=== PATIENT | male | born 1955 | race African-American/Black ===

== ENCOUNTER 2021-10-23 18:39 | Inpatient (IN) | payer MEDICAID, OTHER ==
[~2021-10-23] VITALS: Ht 188 cm; Wt 128.4 kg
[2021-10-23] MEDS ORDERED: cloNIDine HCL 0.1 MG TAB PO ONE (19:00)
[2021-10-23] MEDS ORDERED: HEPARIN DRIP/D5W 100UNITS/ML 250 ML IV SCH (20:00)
[2021-10-23] MEDS ORDERED: HEPARIN SODIUM (PORCINE) 5000 UNITS/ML 1ML VIAL IV ONE (20:00)
[2021-10-23] MEDS ORDERED: LIDOCAINE 5% TOPICAL PATCH TOP ONE (20:00)
[2021-10-23] MEDS ORDERED: ACETAMINOPHEN 325 MG TAB PO ONE (20:00)
[2021-10-23] MEDS ORDERED: NICOTINE 14 MG/24HR TOPICAL PATCH TD ONE (20:00)
[2021-10-23] MEDS ORDERED: IOHEXOL 350 MG/ML 100ML IJ ONE ×2 (20:03→20:04)
[2021-10-23 20:43] LABS: Albumin 2.6 g/dL (3.4-5.0); Calcium 7.2 mg/dL (8.5-10.1); Potassium 4.1 mmol/L (3.5-5.1)
[2021-10-23] MEDS ORDERED: hydrALAZINE HCL 20 MG/ML VL IV ONE (20:45)
[2021-10-23 20:46] LABS: INR 1.02 (0.9-1.15); Partial Thromboplastin Time 30.1 sec (23.6-33.0)
[2021-10-23 20:52] LABS: BUN/Creatinine Ratio 7.2; Bilirubin, Total 0.4 mg/dL (0.2-1.0); Total Protein 6.1 g/dL (6.4-8.2)
[2021-10-23 20:55] LABS: Basophils # (auto) 0 10 ^3/uL (0-0.2); Basophils % (auto) 0.4 % (0.0-2.0); Eosinophils # (auto) 0.1 10 ^3/uL (0-0.8); Eosinophils % (auto) 1.7 % (0.0-7.0); Hematocrit 29.5 % (41.0-53.0); Hemoglobin 9.7 g/dL (13.5-17.5); Lymphocytes # (auto) 1.4 10 ^3/uL (0.4-5.4); Lymphocytes % (auto) 20.1 % (10.0-50.0); Mean Corpuscular Hemoglobin 30.1 pg (28.0-32.0); Mean Corpuscular Hgb Conc. 32.8 g/dL (32.0-36.0); Mean Corpuscular Volume 91.6 fL (80.0-100.0); Monocytes # (auto) 0.6 10 ^3/uL (0-1.3); Monocytes % (auto) 9.1 % (0.0-12.0); Neutrophils # (auto) 4.6 10 ^3/uL (1.6-8.6); Neutrophils % (auto) 68.7 % (37.0-80.0); Nucleated Red Blood Cells % 0.1 %; Red Blood Cells 3.22 10^6/uL (4.5-5.90); Red Cell Distribution Width 13.9 % (11.8-14.3); White Blood Cell 6.7 10^3/uL (4.4-10.8)
[2021-10-23] MEDS ORDERED: HYDROcodone-ACET 5/325MG TAB PO ONE (21:30)
[2021-10-23] MEDS ORDERED: GABAPENTIN 300 MG CAP PO ONE (21:30)
[2021-10-24] MEDS ORDERED: VANCOMYCIN 1GM/250ML 250 ML IV ONE ×2 (01:15)
[2021-10-24] MEDS ORDERED: CLINDAMYCIN 600MG IV 50 ML IV ONE (01:15)
[2021-10-24] MEDS ORDERED: MORPHINE SULFATE INJECTION 2 MG/ML SYRG IV PRN (02:00)
[2021-10-24] MEDS ORDERED: NITROGLYCERIN 0.4 MG SL TAB SL PRN (02:00)
[2021-10-24] MEDS ORDERED: DEXTROSE (50%) 50ML SYRG IV PRN (02:00)
[2021-10-24] MEDS ORDERED: ONDANSETRON HCL 4 MG/2 ML VIAL IV PRN (02:00)
[2021-10-24] MEDS: hydrALAZINE HCL 20 MG/ML VL IV PRN ×3 (02:57→22:32)
[2021-10-24] MEDS: MORPHINE SULFATE INJECTION 2 MG/ML SYRG IV PRN ×4 (04:11→22:23)
[2021-10-24] MEDS ORDERED: LABETALOL HCL 5 MG/ML 4ML SYRINGE IV ONE (05:15)
[2021-10-24] MEDS: HEPARIN SODIUM (PORCINE) 5000 UNITS/ML 1ML VIAL SC SCH ×3 (06:01→21:17)
[2021-10-24] MEDS: InsuLIN REG 1unit/0.01ml Soln (100units/ml) SC SCH ×4 (06:24→21:27)
[2021-10-24] MEDS: ACCU-CHEK COMFORT CURVE STRIP VI SCH ×4 (06:45→21:30)
[2021-10-24 06:54] LABS: Basophils # (auto) 0 10 ^3/uL (0-0.2); Basophils % (auto) 0.4 % (0.0-2.0); Eosinophils # (auto) 0.1 10 ^3/uL (0-0.8); Eosinophils % (auto) 2.1 % (0.0-7.0); Hematocrit 28.8 % (41.0-53.0); Hemoglobin 9.8 g/dL (13.5-17.5); Lymphocytes # (auto) 1.6 10 ^3/uL (0.4-5.4); Lymphocytes % (auto) 27.3 % (10.0-50.0); Mean Corpuscular Hemoglobin 31.1 pg (28.0-32.0); Mean Corpuscular Hgb Conc. 34.2 g/dL (32.0-36.0); Mean Corpuscular Volume 90.9 fL (80.0-100.0); Monocytes # (auto) 0.6 10 ^3/uL (0-1.3); Monocytes % (auto) 9.5 % (0.0-12.0); Neutrophils # (auto) 3.6 10 ^3/uL (1.6-8.6); Neutrophils % (auto) 60.7 % (37.0-80.0); Red Blood Cells 3.16 10^6/uL (4.5-5.90); Red Cell Distribution Width 13.9 % (11.8-14.3)
[2021-10-24 07:19] LABS: Calcium 7.5 mg/dL (8.5-10.1); Potassium 3.8 mmol/L (3.5-5.1)
[2021-10-24 07:25] LABS: BUN/Creatinine Ratio 7.8
[2021-10-24] MEDS: LOSARTAN POTASSIUM 50 MG TAB PO SCH (11:45)
[2021-10-24] MEDS: TAMSULOSIN HYDROCHLORIDE 0.4 MG CAP PO SCH (11:45)
[2021-10-24] MEDS: GABAPENTIN 300 MG CAP PO SCH ×2 (11:45→21:12)
[2021-10-24] MEDS: cloNIDine HCL 0.1 MG TAB PO SCH ×2 (11:46→21:15)
[2021-10-24] MEDS: glipiZIDE 5 MG TAB PO SCH (11:59)
[2021-10-24] MEDS: DOXYCYCLINE 100MG/250ML 250 ML IV SCH (12:05)
[2021-10-24 12:49] VITALS: BP 182/90
[2021-10-24 13:00] VITALS: BP 182/90
[2021-10-24] MEDS ORDERED: FUROSEMIDE 100 MG/10ML VIAL IV SCH (16:30)
[2021-10-24 17:00] VITALS: BP 150/92
[2021-10-24] MEDS ORDERED: FUROSEMIDE 40 MG TAB PO SCH (18:00)
[2021-10-24 18:03] LABS: Protein, Urine 881.4 mg/dL (0.0-11.9)
[2021-10-24 20:00] VITALS: BP 144/91
[2021-10-24] MEDS: TERAZOSIN HCL 1 MG CAP PO SCH (21:14)
[2021-10-24 21:43] VITALS: BP 183/92
[2021-10-25] MEDS ORDERED: LABETALOL HCL 5 MG/ML 4ML SYRINGE IV ONE (00:45)
[2021-10-25] MEDS ORDERED: ACETAMINOPHEN 325 MG TAB PO PRN (00:45)
[2021-10-25] MEDS: DOXYCYCLINE 100MG/250ML 250 ML IV SCH ×2 (00:51→12:10)
[2021-10-25] MEDS: hydrALAZINE HCL 20 MG/ML VL IV PRN ×2 (04:33→23:42)
[2021-10-25 04:52] VITALS: BP 180/92
[2021-10-25 05:29] LABS: Basophils # (auto) 0 10 ^3/uL (0-0.2); Basophils % (auto) 0.3 % (0.0-2.0); Eosinophils # (auto) 0.1 10 ^3/uL (0-0.8); Eosinophils % (auto) 2.1 % (0.0-7.0); Hematocrit 28.4 % (41.0-53.0); Hemoglobin 9.6 g/dL (13.5-17.5); Lymphocytes # (auto) 1.1 10 ^3/uL (0.4-5.4); Lymphocytes % (auto) 15.7 % (10.0-50.0); Mean Corpuscular Hemoglobin 30.8 pg (28.0-32.0); Mean Corpuscular Hgb Conc. 33.8 g/dL (32.0-36.0); Mean Corpuscular Volume 91.1 fL (80.0-100.0); Monocytes # (auto) 0.6 10 ^3/uL (0-1.3); Monocytes % (auto) 8.8 % (0.0-12.0); Neutrophils % (auto) 73.1 % (37.0-80.0); Nucleated Red Blood Cells % 0.1 %; Red Blood Cells 3.12 10^6/uL (4.5-5.90); Red Cell Distribution Width 13.7 % (11.8-14.3); White Blood Cell 6.8 10^3/uL (4.4-10.8)
[2021-10-25 05:41] LABS: BUN/Creatinine Ratio 7.7; Calcium 7.7 mg/dL (8.5-10.1); Potassium 3.8 mmol/L (3.5-5.1)
[2021-10-25] MEDS: FUROSEMIDE 100 MG/10ML VIAL IV SCH ×2 (06:49→17:45)
[2021-10-25] MEDS: HEPARIN SODIUM (PORCINE) 5000 UNITS/ML 1ML VIAL SC SCH ×3 (06:54→22:00)
[2021-10-25] MEDS: ACCU-CHEK COMFORT CURVE STRIP VI SCH ×4 (06:56→22:18)
[2021-10-25] MEDS: InsuLIN REG 1unit/0.01ml Soln (100units/ml) SC SCH ×4 (06:56→22:00)
[2021-10-25 09:00] VITALS: BP 162/95
[2021-10-25] MEDS: cloNIDine HCL 0.1 MG TAB PO SCH ×2 (09:40→21:52)
[2021-10-25] MEDS: LOSARTAN POTASSIUM 50 MG TAB PO SCH (09:41)
[2021-10-25] MEDS: TAMSULOSIN HYDROCHLORIDE 0.4 MG CAP PO SCH (09:41)
[2021-10-25] MEDS: GABAPENTIN 300 MG CAP PO SCH ×2 (09:42→22:29)
[2021-10-25] MEDS: glipiZIDE 5 MG TAB PO SCH (09:43)
[2021-10-25 13:00] VITALS: BP 154/84
[2021-10-25] MEDS: MORPHINE SULFATE INJECTION 2 MG/ML SYRG IV PRN ×2 (14:06→20:02)
[2021-10-25] MEDS: CALCIUM ACETATE 667 MG CAP PO SCH ×2 (14:09→17:45)
[2021-10-25 14:18] LABS: INR 1.05 (0.9-1.15); Partial Thromboplastin Time 31.5 sec (23.6-33.0)
[2021-10-25 17:00] VITALS: BP 166/70
[2021-10-25 21:51] VITALS: BP 203/99
[2021-10-25] MEDS: TERAZOSIN HCL 1 MG CAP PO SCH (21:52)
[2021-10-25 22:39] VITALS: BP 208/92
[2021-10-26] VITALS (8 sets, daily range): BP systolic 150–197; BP diastolic 76–112
[2021-10-26] MEDS: MORPHINE SULFATE INJECTION 2 MG/ML SYRG IV PRN ×2 (00:41→05:58)
[2021-10-26] MEDS: HEPARIN SODIUM (PORCINE) 5000 UNITS/ML 1ML VIAL SC SCH ×3 (05:24→22:46)
[2021-10-26] MEDS: FUROSEMIDE 100 MG/10ML VIAL IV SCH ×2 (05:44→18:00)
[2021-10-26] MEDS: ACCU-CHEK COMFORT CURVE STRIP VI SCH ×4 (06:14→22:47)
[2021-10-26] MEDS: InsuLIN REG 1unit/0.01ml Soln (100units/ml) SC SCH ×4 (06:41→22:48)
[2021-10-26] MEDS ORDERED: SODIUM CHL 0.9% 1000 ML BAG XX ONE (07:00)
[2021-10-26] MEDS: CALCIUM ACETATE 667 MG CAP PO SCH ×3 (08:00→18:00)
[2021-10-26 08:59] LABS: Basophils # (auto) 0 10 ^3/uL (0-0.2); Basophils % (auto) 0.5 % (0.0-2.0); Eosinophils # (auto) 0.1 10 ^3/uL (0-0.8); Eosinophils % (auto) 2.2 % (0.0-7.0); Hematocrit 28.8 % (41.0-53.0); Hemoglobin 9.5 g/dL (13.5-17.5); Lymphocytes # (auto) 1.2 10 ^3/uL (0.4-5.4); Lymphocytes % (auto) 21.4 % (10.0-50.0); Mean Corpuscular Hemoglobin 30.7 pg (28.0-32.0); Mean Corpuscular Hgb Conc. 33.1 g/dL (32.0-36.0); Mean Corpuscular Volume 92.8 fL (80.0-100.0); Monocytes # (auto) 0.6 10 ^3/uL (0-1.3); Monocytes % (auto) 10.6 % (0.0-12.0); Neutrophils # (auto) 3.6 10 ^3/uL (1.6-8.6); Neutrophils % (auto) 65.3 % (37.0-80.0); Nucleated Red Blood Cells % 0.1 %; Red Blood Cells 3.11 10^6/uL (4.5-5.90); Red Cell Distribution Width 13.8 % (11.8-14.3); White Blood Cell 5.5 10^3/uL (4.4-10.8)
[2021-10-26 09:21] LABS: BUN/Creatinine Ratio 7.9; Calcium 7.8 mg/dL (8.5-10.1); Potassium 4.5 mmol/L (3.5-5.1)
[2021-10-26] MEDS: cloNIDine HCL 0.1 MG TAB PO SCH ×2 (10:00→22:45)
[2021-10-26] MEDS: B-COMPLEX W/ C & FOLIC ACID(NEPHROVITE TAB) PO SCH (10:00)
[2021-10-26] MEDS: TAMSULOSIN HYDROCHLORIDE 0.4 MG CAP PO SCH (10:00)
[2021-10-26] MEDS: glipiZIDE 5 MG TAB PO SCH (10:00)
[2021-10-26] MEDS: GABAPENTIN 300 MG CAP PO SCH ×2 (10:00→22:46)
[2021-10-26] MEDS: LOSARTAN POTASSIUM 50 MG TAB PO SCH (10:00)
[2021-10-26] MEDS ORDERED: LIDOCAINE 2%HCL (LOCAL ANESTH.) INJ 10ml MDV ONE (10:39)
[2021-10-26] MEDS ORDERED: HEPARIN SODIUM (PORCINE) 5000 UNITS/ML 1ML VIAL ONE (10:43)
[2021-10-26] MEDS ORDERED: fentaNYL CITRATE 100 MCG/2 ML VL ONE (10:43)
[2021-10-26] MEDS ORDERED: MIDAZOLAM HCL 2MG/2ML 2ml VIAL (1mg/ml) ONE (10:44)
[2021-10-26] MEDS ORDERED: IODIXANOL 320MG/ML 100ML BTL IV ONE (10:55)
[2021-10-26 18:25] LABS: Hepatitis C Antibody Positive (Negative)
[2021-10-26] MEDS ORDERED: EPOETIN ALFA-EPBX 10,000 UNIT/1ML VIAL SC ONE (21:00)
[2021-10-26] MEDS: TERAZOSIN HCL 1 MG CAP PO SCH (22:45)
[2021-10-27] MEDS: MORPHINE SULFATE INJECTION 2 MG/ML SYRG IV PRN ×3 (04:32→18:49)
[2021-10-27 04:53] VITALS: BP 150/86
[2021-10-27] MEDS: InsuLIN REG 1unit/0.01ml Soln (100units/ml) SC SCH ×4 (07:00→22:25)
[2021-10-27] MEDS: FUROSEMIDE 100 MG/10ML VIAL IV SCH ×2 (07:01→18:32)
[2021-10-27] MEDS: HEPARIN SODIUM (PORCINE) 5000 UNITS/ML 1ML VIAL SC SCH ×3 (07:02→22:21)
[2021-10-27] MEDS: ACCU-CHEK COMFORT CURVE STRIP VI SCH ×4 (07:02→22:16)
[2021-10-27] MEDS: CALCIUM ACETATE 667 MG CAP PO SCH ×3 (08:56→18:32)
[2021-10-27 09:00] VITALS: BP 154/96
[2021-10-27] MEDS: GABAPENTIN 300 MG CAP PO SCH ×2 (10:31→22:15)
[2021-10-27] MEDS: TAMSULOSIN HYDROCHLORIDE 0.4 MG CAP PO SCH (10:32)
[2021-10-27] MEDS: LOSARTAN POTASSIUM 50 MG TAB PO SCH (10:32)
[2021-10-27] MEDS: B-COMPLEX W/ C & FOLIC ACID(NEPHROVITE TAB) PO SCH (10:32)
[2021-10-27] MEDS: cloNIDine HCL 0.1 MG TAB PO SCH ×2 (10:33→22:15)
[2021-10-27] MEDS: glipiZIDE 5 MG TAB PO SCH (10:47)
[2021-10-27 13:00] VITALS: BP 151/87
[2021-10-27 17:00] VITALS: BP 169/94
[2021-10-27] MEDS: hydrALAZINE HCL 20 MG/ML VL IV PRN (18:33)
[2021-10-27 21:51] VITALS: BP 205/92
[2021-10-27] MEDS: TERAZOSIN HCL 1 MG CAP PO SCH (22:15)
[2021-10-28] MEDS: hydrALAZINE HCL 20 MG/ML VL IV PRN ×3 (00:05→08:39)
[2021-10-28 01:32] VITALS: BP 171/87
[2021-10-28 04:41] VITALS: BP 188/98
[2021-10-28] MEDS: ACCU-CHEK COMFORT CURVE STRIP VI SCH ×4 (05:56→22:06)
[2021-10-28] MEDS: FUROSEMIDE 100 MG/10ML VIAL IV SCH ×2 (05:56→18:18)
[2021-10-28] MEDS: HEPARIN SODIUM (PORCINE) 5000 UNITS/ML 1ML VIAL SC SCH ×3 (05:57→22:13)
[2021-10-28] MEDS: InsuLIN REG 1unit/0.01ml Soln (100units/ml) SC SCH ×4 (06:16→22:13)
[2021-10-28 09:00] VITALS: BP 173/81
[2021-10-28] MEDS: TAMSULOSIN HYDROCHLORIDE 0.4 MG CAP PO SCH (09:34)
[2021-10-28] MEDS: cloNIDine HCL 0.1 MG TAB PO SCH ×2 (09:34→22:05)
[2021-10-28] MEDS: LOSARTAN POTASSIUM 50 MG TAB PO SCH (09:34)
[2021-10-28] MEDS: glipiZIDE 5 MG TAB PO SCH (09:35)
[2021-10-28] MEDS: B-COMPLEX W/ C & FOLIC ACID(NEPHROVITE TAB) PO SCH (09:35)
[2021-10-28] MEDS: GABAPENTIN 300 MG CAP PO SCH ×2 (09:35→22:04)
[2021-10-28] MEDS: CALCIUM ACETATE 667 MG CAP PO SCH ×3 (09:37→18:18)
[2021-10-28] MEDS ORDERED: SODIUM CHL 0.9% 1000 ML BAG XX ONE (10:15)
[2021-10-28 11:26] LABS: BUN/Creatinine Ratio 7.1; Calcium 8.9 mg/dL (8.5-10.1); Potassium 4.2 mmol/L (3.5-5.1)
[2021-10-28 13:00] VITALS: BP 181/89
[2021-10-28] MEDS ORDERED: LACTULOSE 20Gm/30ML SOLN PO PRN (15:30)
[2021-10-28] MEDS ORDERED: DOCUSATE SOD 100 MG CAP PO PRN (15:30)
[2021-10-28 17:00] VITALS: BP 131/78
[2021-10-28] MEDS: MORPHINE SULFATE INJECTION 2 MG/ML SYRG IV PRN (19:44)
[2021-10-28 22:00] VITALS: BP 171/90
[2021-10-28] MEDS ORDERED: SENNA 8.6 MG TAB PO PRN (22:00)
[2021-10-28] MEDS: TERAZOSIN HCL 1 MG CAP PO SCH (22:05)
[2021-10-28] MEDS: METOPROLOL TARTRATE 25 MG TAB PO SCH (22:06)
[2021-10-29] MEDS: hydrALAZINE HCL 20 MG/ML VL IV PRN (00:58)
[2021-10-29 05:00] VITALS: BP 133/86
[2021-10-29] MEDS: ACCU-CHEK COMFORT CURVE STRIP VI SCH ×4 (06:49→21:00)
[2021-10-29] MEDS: FUROSEMIDE 100 MG/10ML VIAL IV SCH ×2 (06:49→17:44)
[2021-10-29] MEDS: HEPARIN SODIUM (PORCINE) 5000 UNITS/ML 1ML VIAL SC SCH ×3 (06:55→21:17)
[2021-10-29] MEDS: InsuLIN REG 1unit/0.01ml Soln (100units/ml) SC SCH ×4 (06:57→21:19)
[2021-10-29] MEDS: CALCIUM ACETATE 667 MG CAP PO SCH ×3 (07:45→17:44)
[2021-10-29 09:00] VITALS: BP 166/87
[2021-10-29] MEDS: TAMSULOSIN HYDROCHLORIDE 0.4 MG CAP PO SCH (09:09)
[2021-10-29] MEDS: cloNIDine HCL 0.1 MG TAB PO SCH ×2 (09:09→20:59)
[2021-10-29] MEDS: LOSARTAN POTASSIUM 50 MG TAB PO SCH (09:09)
[2021-10-29] MEDS: glipiZIDE 5 MG TAB PO SCH (09:10)
[2021-10-29] MEDS: METOPROLOL TARTRATE 25 MG TAB PO SCH ×3 (09:11→21:00)
[2021-10-29] MEDS: B-COMPLEX W/ C & FOLIC ACID(NEPHROVITE TAB) PO SCH (09:11)
[2021-10-29] MEDS: GABAPENTIN 300 MG CAP PO SCH ×2 (09:11→20:59)
[2021-10-29 13:00] VITALS: BP 167/91
[2021-10-29 17:20] VITALS: BP 164/90
[2021-10-29] MEDS: TERAZOSIN HCL 1 MG CAP PO SCH (20:59)
[2021-10-29] MEDS ORDERED: NICOTINE 14 MG/24HR TOPICAL PATCH TD ONE (21:00)
[2021-10-29] MEDS: MORPHINE SULFATE INJECTION 2 MG/ML SYRG IV PRN (21:02)
[2021-10-29 22:00] VITALS: BP 155/83
[2021-10-30 05:00] VITALS: BP 132/62
[2021-10-30] MEDS: InsuLIN REG 1unit/0.01ml Soln (100units/ml) SC SCH ×2 (06:10→12:17)
[2021-10-30] MEDS: ACCU-CHEK COMFORT CURVE STRIP VI SCH ×2 (06:10→11:30)
[2021-10-30] MEDS: FUROSEMIDE 100 MG/10ML VIAL IV SCH (06:21)
[2021-10-30] MEDS: HEPARIN SODIUM (PORCINE) 5000 UNITS/ML 1ML VIAL SC SCH (06:28)
[2021-10-30] MEDS: CALCIUM ACETATE 667 MG CAP PO SCH ×2 (07:26→12:16)
[2021-10-30 09:14] VITALS: BP 156/85
[2021-10-30] MEDS: cloNIDine HCL 0.1 MG TAB PO SCH ×2 (09:40→10:04)
[2021-10-30] MEDS: LOSARTAN POTASSIUM 50 MG TAB PO SCH ×2 (09:40→10:04)
[2021-10-30] MEDS: METOPROLOL TARTRATE 25 MG TAB PO SCH ×2 (09:41→10:03)
[2021-10-30] MEDS ORDERED: NICOTINE 14 MG/24HR TOPICAL PATCH TD SCH (10:00)
[2021-10-30] MEDS: TAMSULOSIN HYDROCHLORIDE 0.4 MG CAP PO SCH (10:04)
[2021-10-30] MEDS: glipiZIDE 5 MG TAB PO SCH (10:05)
[2021-10-30] MEDS: B-COMPLEX W/ C & FOLIC ACID(NEPHROVITE TAB) PO SCH (10:05)
[2021-10-30] MEDS: GABAPENTIN 300 MG CAP PO SCH (10:05)
[2021-10-30] MEDS ORDERED: LOSA-69 PO (10:34)
[2021-10-30] MEDS ORDERED: TAM04C PO (10:34)
[2021-10-30] MEDS ORDERED: TERA1CAP33 PO (10:34)
[2021-10-30] MEDS ORDERED: GLIP5TAB12 PO (10:34)
[2021-10-30] MEDS ORDERED: GABA300C10 PO (10:34)
[2021-10-30] MEDS ORDERED: CALC667C5 PO (10:34)
[2021-10-30] MEDS ORDERED: CLON0.1T PO (10:34)
[2021-10-30] MEDS ORDERED: MET25T PO (10:34)
[2021-10-30] MEDS ORDERED: FURO1TAB31 PO (11:10)
[2021-10-30 11:15] LABS: Potassium 4.4 mmol/L (3.5-5.1)
[2021-10-30 11:24] LABS: BUN/Creatinine Ratio 6.6; Calcium 8.8 mg/dL (8.5-10.1)
[2021-10-30 12:42] VITALS: BP 151/72
[2021-10-30 12:57] VITALS: BP 151/72
[2021-10-30 13:01] VITALS: BP 151/72
== END 2021-10-30 14:00 | disposition home or self-care (01) | DRG 194 ==
LOC: ER 18:39 → TELE 10-24 01:54 → TELE-CENTR 10-24 11:15 → CENTRAL 10-30 10:38
PROVIDERS: ADMIT Hospitalist; ATTEND Hospitalist
PROC: 5A1D70Z Performance of Urinary Filtration, Intermittent, Less than 6 Hours Per Day (ICD-10-PCS; 2021-10-24)
PROC: 0JH63XZ Insertion of Tunneled Vascular Access Device into Chest Subcutaneous Tissue and Fascia, Percutaneous Approach (ICD-10-PCS; principal; 2021-10-26)
PROC: 02HV33Z Insertion of Infusion Device into Superior Vena Cava, Percutaneous Approach (ICD-10-PCS; 2021-10-26)
PROC: B548ZZA Ultrasonography of Superior Vena Cava, Guidance (ICD-10-PCS; 2021-10-26)
PROC: 5A1D70Z Performance of Urinary Filtration, Intermittent, Less than 6 Hours Per Day (ICD-10-PCS; 2021-10-26)
PROC: B5181ZA Fluoroscopy of Superior Vena Cava using Low Osmolar Contrast, Guidance (ICD-10-PCS; 2021-10-26)
PROC: 5A1D70Z Performance of Urinary Filtration, Intermittent, Less than 6 Hours Per Day (ICD-10-PCS; 2021-10-30)
DX: I13.2 Hypertensive heart and chronic kidney disease with heart failure and with stage 5 chronic kidney disease, or end stage renal disease (principal); N17.9 Acute kidney failure, unspecified; D63.1 Anemia in chronic kidney disease; E83.39 Other disorders of phosphorus metabolism; E11.22 Type 2 diabetes mellitus with diabetic chronic kidney disease; N04.9 Nephrotic syndrome with unspecified morphologic changes; E11.42 Type 2 diabetes mellitus with diabetic polyneuropathy; N18.6 End stage renal disease; N25.81 Secondary hyperparathyroidism of renal origin; Z20.822 Contact with and (suspected) exposure to COVID-19; E66.9 Obesity, unspecified; F17.210 Nicotine dependence, cigarettes, uncomplicated; I16.0 Hypertensive urgency; J44.9 Chronic obstructive pulmonary disease, unspecified; Z99.2 Dependence on renal dialysis; Z88.0 Allergy status to penicillin; Z82.49 Family history of ischemic heart disease and other diseases of the circulatory system; Z68.36 Body mass index [BMI] 36.0-36.9, adult; E11.65 Type 2 diabetes mellitus with hyperglycemia; I50.33 Acute on chronic diastolic (congestive) heart failure; Z79.84 Long term (current) use of oral hypoglycemic drugs
CPT/HCPCS: 36415; 36558; 71045; 71275; 76775; 76942; 77001; 80048; 80053; 82306; 82570; 82962; 83036; 83605; 83735; 83880; 83970; 84100; 84154; 84156; 84300; 84484; 84550; 85025; 85610; 85652; 85730; 86141; 86803; 87340; 90935; 93306; 93970; 96365; 96366; 96367; 96375; 96376; 99152; G0378; J1642; J1815; J2001; J2250; J3490; Q9967

== ENCOUNTER 2021-12-25 19:45 | Emergency (ER) | payer MEDICAID ==
[~2021-12-25] VITALS: Ht 188 cm; Wt 127.0 kg
[~2021-12-25 19:45] MED LIST: CALC667C5 PO; CLON0.1T PO; FURO1TAB31 PO; GABA300C10 PO; GLIP5TAB12 PO; LOSA-69 PO; MET25T PO; TAM04C PO; TERA1CAP33 PO
[2021-12-25 22:28] LABS: Urine Bacteria NONE SEEN /hpf (None Seen); Urine Blood Negative /uL (Negative); Urine Specific Gravity 1.011 (1.001-1.035); Urine WBC <1 /hpf (0 - 3)
[2021-12-25 23:17] LABS: Calcium 8.2 mg/dL (8.5-10.1)
[2021-12-25 23:18] LABS: Hematocrit 33.2 % (41.0-53.0); Hemoglobin 11.1 g/dL (13.5-17.5); Mean Corpuscular Hemoglobin 31.2 pg (28.0-32.0); Mean Corpuscular Hgb Conc. 33.4 g/dL (32.0-36.0); Mean Corpuscular Volume 93.4 fL (80.0-100.0); Red Blood Cells 3.56 10^6/uL (4.5-5.90); Red Cell Distribution Width 13.7 % (11.8-14.3); White Blood Cell 5.5 10^3/uL (4.4-10.8)
[2021-12-25 23:23] LABS: Albumin 3.2 g/dL (3.4-5.0); BUN/Creatinine Ratio 4.7; Bilirubin, Total 0.5 mg/dL (0.2-1.0); Total Protein 7.4 g/dL (6.4-8.2)
[2021-12-25 23:30] LABS: Basophils % (manual) 0 (0.0-2.0); Blast Cells 0; Metamyelocytes % 0; Promyelocytes % 0; Reactive Lymphocytes 0
[2021-12-25 23:59] LABS: Band Neutrophils % (manual) 3; Eosinophils % (manual) 2 (0-7); Monocytes % (manual) 7 (0-12); Myelocytes % 1
[2021-12-26] LABS: Lymphocytes % (manual) 17 (10.0-50.0)
[2021-12-26] MEDS ORDERED: KETOROLAC TROMETH 60MG/2ML VIAL IM ONE (01:00)
[2021-12-26 02:15] VITALS: BP 165/85
== END 2021-12-26 02:52 | disposition home or self-care (01) ==
LOC: ER 19:45
DX: E11.65 Type 2 diabetes mellitus with hyperglycemia (principal); M54.30 Sciatica, unspecified side; I12.0 Hypertensive chronic kidney disease with stage 5 chronic kidney disease or end stage renal disease; E11.22 Type 2 diabetes mellitus with diabetic chronic kidney disease; N18.6 End stage renal disease; F17.210 Nicotine dependence, cigarettes, uncomplicated; Z99.2 Dependence on renal dialysis; Z79.899 Other long term (current) drug therapy; Z88.0 Allergy status to penicillin
CPT/HCPCS: 36415; 80053; 81001; 85007; 85027; 96372; 99283; J1885